=== PATIENT | female | born 2000 | race African-American/Black ===

== ENCOUNTER 2022-06-05 20:53 | Emergency (ER) | payer SELFPAY ==
[~2022-06-05] VITALS: Ht 157.5 cm; Wt 56.3 kg
[2022-06-05 22:53] LABS: Urine Bacteria NONE SEEN /hpf (None Seen); Urine Blood Negative /uL (Negative); Urine Mucus FEW (None Seen); Urine Specific Gravity 1.022 (1.001-1.035); Urine WBC 2 /hpf (0 - 5)
[2022-06-06] MEDS ORDERED: ACET-1158 PO (01:54)
[2022-06-06] MEDS ORDERED: OSEL75CA5 PO (01:54)
[2022-06-06] MEDS ORDERED: ACETAMINOPHEN 325 MG TAB PO ONE (02:15)
[2022-06-06 07:38] VITALS: BP 114/67
== END 2022-06-06 07:45 | disposition home or self-care (01) ==
LOC: ER 20:59
DX: J10.1 Influenza due to other identified influenza virus with other respiratory manifestations (principal); Z20.822 Contact with and (suspected) exposure to COVID-19
CPT/HCPCS: 36415; 81001; 87426; 87804